=== PATIENT | female | born 1980 | race Caucasian/White ===

== ENCOUNTER 2019-02-26 16:38 | Emergency (ER) | payer BC, OTHER ==
[2019-02-26] MEDS ORDERED: NORMAL SALINE 1000 ML 1,000 ML IV ONE (16:50)
--- NOTE | 2019-02-26 16:52 | ER Document Report ---
ED Medical Screen (RME) - General Chief Complaint: Head Injury without LOC Stated Complaint: DIZZINESS,HEADACHE Time Seen by Provider: 02/26/19 16:41 Primary Care Provider: LAMBERT STUART MD [Primary Care Provider] - Follow up as needed Notes: Patient presents stating that she hit her head with a car door 6 days ago. Patient states she has had a headache since then that has changed in location. Patient states that there was no loss of consciousness no nausea or vomiting. Patient reports seeing her primary doctor on Wednesday after this occurred. Patient states that she went to the [facility] ER 2 days ago and received IV fluids headache medication and had a negative CT scan. Patient states today the headache is now up to the right occipital area she is nauseous and feels dizzy. Patient states that 2 days ago she had numbness to the left side of her face today she says she has numbness to the right side of her face. Patient very anxious and tearful in triage. I have greeted and performed a rapid initial assessment of this patient. A comprehensive ED assessment and evaluation of the patient, analysis of test results and completion of the medical decision making process will be conducted by additional ED providers. TRAVEL OUTSIDE OF THE [place] IN LAST 30 DAYS: No - Related Data Allergies/Adverse Reactions: No Known Allergies Allergy (Verified 02/26/19 16:45) Past Medical History - Social History Chew tobacco use (# tins/day): No Frequency of alcohol use: None Drug Abuse: None Renal/ Medical History: Reports: Hx Ovarian Cysts Psychiatric Medical History: Reports: Hx Anxiety, Hx Depression Past Surgical History: Reports: Hx Gynecologic Surgery - ovarian cyst - Immunizations Immunizations up to date: Yes Hx Diphtheria, Pertussis, Tetanus Vaccination: Yes Physical Exam - Vital signs Vitals: Temp Pulse Resp BP Pulse Ox 98.1 F 52 L 18 148/97 H 100 02/26/19 16:42 02/26/19 16:42 02/26/19 16:42 02/26/19 16:42 02/26/19 16:42 - Neurological Neuro grossly intact: Yes Sawyer Coma Scale Eye Opening: Spontaneous Khurram Coma Scale Verbal: Oriented Sawyer Coma Scale Motor: Obeys Commands Sawyer Coma Scale Total: 15 - Psychological Associated symptoms: Anxious, Tearful Course - Vital Signs Vital signs: Temp Pulse Resp BP Pulse Ox 98.1 F 52 L 18 148/97 H 100 10/13/19 16:42 02/26/19 16:42 02/26/19 16:42 02/26/19 16:42 02/26/19 16:42 Doctor's Discharge - Discharge Referrals: LAMBERT STUART MD [Primary Care Provider] - Follow up as needed
--- NOTE | 2019-02-26 17:07 | ER Document Report ---
ED General - General Chief Complaint: Head Injury without LOC Stated Complaint: DIZZINESS,HEADACHE Time Seen by Provider: 02/26/19 16:41 Primary Care Provider: LAMBERT STUART MD [NO LOCAL MD] - Follow up as needed TRAVEL OUTSIDE OF THE [place] IN LAST 30 DAYS: No - HPI Patient complains to provider of: headache Notes: 38 y/o presenting to ED for evaluation of bilateral throbbing headache pain is a bilateral throbbing pain encompassing the entire head no neck pain or fever she has had some nausea and some nonbilious vomiting she states her head trauma was approx 6 days ago she was seen by pcp who felt she had a concussion at the time and recommended rest, po hydration, and nsaids she subsequently presented to the ED at [facility] and had a negative head CT and was given IV tylenol, phenergan and benadryl as well as an IVF bolus. She presents today after going to work today (works here at [employer]) and felt very badly while on shift with nausea, worsening headache to a severe intensity, and varying episodes of facial tingling/numbness which she has had over the last week since the head injury. she describes intermittent difficulty with finding words but denies ever having any arm/leg weakness or speech changes. she has been driving and parenting normally per herself and spouse who is at bedside - Related Data Allergies/Adverse Reactions: No Known Allergies Allergy (Verified 02/26/19 16:45) Past Medical History - Social History Smoking Status: Never Smoker Chew tobacco use (# tins/day): No Frequency of alcohol use: None Drug Abuse: None Family History: Reviewed & Not Pertinent Patient has suicidal ideation: No Patient has homicidal ideation: No Renal/ Medical History: Reports: Hx Ovarian Cysts Psychiatric Medical History: Reports: Hx Anxiety, Hx Depression Past Surgical History: Reports: Hx Gynecologic Surgery - ovarian cyst - Immunizations Immunizations up to date: Yes Hx Diphtheria, Pertussis, Tetanus Vaccination: Yes Review of Systems - Review of Systems Constitutional: No symptoms reported EENT: No symptoms reported Cardiovascular: No symptoms reported Respiratory: No symptoms reported Gastrointestinal: Nausea, Vomiting. denies: Abdominal pain, Diarrhea, Blood in vomit Genitourinary: No symptoms reported Female Genitourinary: No symptoms reported Musculoskeletal: No symptoms reported Skin: No symptoms reported Hematologic/Lymphatic: No symptoms reported Neurological/Psychological: Headaches Physical Exam - Vital signs Vitals: Temp Pulse Resp BP Pulse Ox 98.1 F 52 L 18 148/97 H 100 02/26/19 16:42 02/26/19 16:42 02/26/19 16:42 02/26/19 16:42 02/26/19 16:42 Interpretation: Normal - General General appearance: Appears well, Alert In distress: None - HEENT Head: Normocephalic, Atraumatic Eyes: Normal Pupils: PERRL Sinus: Normal Nasal: Normal Mucous membranes: Normal Pharynx: Normal Neck: Normal. No: Anterior cervical chain, Posterior cervical chain, Brudzinski, Kernig's, Lymphadenopathy - Respiratory Respiratory status: No respiratory distress Chest status: Nontender Breath sounds: Normal Chest palpation: Normal - Cardiovascular Rhythm: Regular Heart sounds: Normal auscultation Murmur: No - Abdominal Inspection: Normal Distension: No distension Bowel sounds: Normal Tenderness: Nontender Organomegaly: No organomegaly - Back Back: Normal, Nontender - Extremities General upper extremity: Normal inspection, Nontender, Normal color, Normal ROM, Normal temperature General lower extremity: Normal inspection, Nontender, Normal color, Normal ROM, Normal temperature, Normal weight bearing. No: Honey's sign - Neurological Neuro grossly intact: Yes Cognition: Normal Orientation: AAOx4 Khurram Coma Scale Eye Opening: Spontaneous Khurram Coma Scale Verbal: Oriented Khurram Coma Scale Motor: Obeys Commands [place] Coma Scale Total: 15 Speech: Normal Cranial nerves: Normal. No: Facial palsy, Forehead sparing, Gaze palsy, Sensory deficit, Tongue deviation Cerebellar coordination: Normal Motor strength normal: LUE, RUE, LLE, RLE Additional motor exam normals: No: Pronator drift, Weakness Sensory: Normal - Psychological Associated symptoms: Normal affect, Normal mood - Skin Skin Temperature: Warm Skin Moisture: Dry Skin Color: Normal Course - Re-evaluation Re-evalutation: 02/26/19 17:27 patient with ongoing headache since head trauma approximately 6 days ago she has had negative head CT since injury but states pain has now worsened to a severe headache and now encompasses the entire head she is having nausea/vomiting as well her symptoms are consistent w/ post-concussive syndrome she is neurologically intact and has no neurologic deficits here despite report of intermittent paresthesia type symptoms patient has no evidence of meningismus and given onset with trauma, do not feel that LP is indicated doubt that repeat neuro-imaging is absolutely necessary however patient is very concerned for potential misdiagnosis and states headache is worsening will repeat head CT and provide IVF, toradol/reglan/benadryl 02/26/19 18:44 reports improvement in symptoms CT head negative recommend outpt neurology follow up for ongoing headaches - Vital Signs Vital signs: Temp Pulse Resp BP Pulse Ox 98.1 F 52 L 21 H 123/65 100 02/26/19 16:42 02/26/19 16:42 02/26/19 18:07 02/26/19 18:07 02/26/19 18:07 - Laboratory Result Diagrams: 02/26/19 17:05 02/26/19 17:05 Laboratory results interpreted by me: 02/26/19 02/26/19 17:05 17:05 WBC 13.5 H RBC 5.65 H MCV 79 L MCH 26.1 L RDW 15.0 H Glucose 111 H Calcium 10.8 H - Diagnostic Test Radiology reviewed: Image reviewed, Reports reviewed - EKG Interpretation by Me Additional EKG results interpreted by me: 02/26/19 17:35 NSR, rate of 50, no ST segment changes, normal T waves Discharge - Discharge Clinical Impression: Post-concussion headache, Elevated blood pressure reading Condition: Stable Disposition: HOME, SELF-CARE Instructions: Headache ([facility]) Additional Instructions: please return to the ED with worsening continue home medications as prescribed follow up with your primary doctor and consider outpatient follow up with a neurologist Forms: Elevated Blood Pressure Referrals: LAMBERT STUART MD [NO LOCAL MD] - Follow up as needed
[2019-02-26 17:16] LABS: ABSOLUTE BASOPHILS # (AUTO) 0.2 10^3/uL (0.0-0.2); ABSOLUTE EOSINOPHILS # (AUTO) 0.2 10^3/uL (0.0-0.6); ABSOLUTE LYMPHOCYTES (AUTO) 4.2 10^3/uL (0.5-4.7); ABSOLUTE MONOCYTES (AUTO) 0.7 10^3/uL (0.1-1.4); ABSOLUTE NEUT (AUTO) 8.2 10^3/uL (1.7-8.2); BASOPHILS % (AUTO) 1.4 % (0-2); EOSINOPHILS % (AUTO) 1.8 % (0-6); HEMATOCRIT 44.7 % (36.0-47.0); HEMOGLOBIN 14.7 g/dL (12.0-15.5); LYMPHOCYTES % (AUTO) 31.4 % (13-45); MEAN CORPUSCULAR HEMOGLOBIN 26.1 pg (27.0-33.4); MEAN CORPUSCULAR HGB CONC 32.9 g/dL (32.0-36.0); MEAN CORPUSCULAR VOLUME 79 fl (80-97); PLATELET COUNT 237 10^3/uL (150-450); RED BLOOD COUNT 5.65 10^6/uL (3.72-5.28); SEGMENTED NEUTROPHILS % (AUTO) 60.4 % (42-78); TOTAL CELLS COUNTED % (AUTO) 100 %; WHITE BLOOD COUNT 13.5 10^3/uL (4.0-10.5)
[2019-02-26] MEDS ORDERED: DIPHENHYDRAMINE HCL 50 MG/ML VIAL IV ONE (17:21)
[2019-02-26] MEDS ORDERED: METOCLOPRAMIDE HCL INJ/PF 10 MG/2 ML SDV IV ONE (17:21)
[2019-02-26] MEDS ORDERED: KETOROLAC TROMETHAMINE INJ/PF 30 MG/1 ML SDV IV ONE (17:21)
[2019-02-26 17:40] LABS: ANION GAP 15 (5-19); BLOOD UREA NITROGEN 12 mg/dL (7-20); CALCIUM 10.8 mg/dL (8.4-10.2); CARBON DIOXIDE 25 mmol/L (22-30); CHLORIDE 102 mmol/L (98-107); GLUCOSE 111 mg/dL (75-110); POTASSIUM 3.6 mmol/L (3.6-5.0)
--- NOTE | 2019-02-26 18:07 | EKG REPORT ---
SEVERITY:- NORMAL ECG - SINUS BRADYCARDIA 50 : Confirmed by: Andrew Khanna MD 26-Feb-2019 18:06:06
--- NOTE | 2019-02-26 18:37 | RADIOLOGY REPORT (SQ) ---
EXAM DESCRIPTION: CT HEAD WITHOUT COMPLETED DATE/TIME: 02/26/2019 6:20 pm REASON FOR STUDY: headache COMPARISON: None. TECHNIQUE: Axial images acquired through the brain without intravenous contrast. Images reviewed wi th bone, brain and subdural windows. Images stored on PACS. All CT scanners at this facility use dose modulation, iterative reconstruction, and/or weight based d osing when appropriate to reduce radiation dose to as low as reasonably achievable (ALARA). [facility]: Dose Right [facility]: CareDose [facility]: Dose Right [facility]: Teradose 4D [facility]: [employer] RADIATION DOSE: CT Rad equipment meets quality standard of care and radiation dose reduction techniq ues were employed. CTDIvol: 53.2 mGy. DLP: 911 mGy-cm. mGy. LIMITATIONS: None. FINDINGS: VENTRICLES: Normal size and contour. CEREBRUM: No masses. No hemorrhage. No midline shift. No evidence for acute infarction. Normal gra y/white matter differentiation. No areas of low density in the white matter. CEREBELLUM: No masses. No hemorrhage. No alteration of density. No evidence for acute infarction. EXTRAAXIAL SPACES: No fluid collections. No masses. ORBITS AND GLOBE: No intra- or extraconal masses. Normal contour of globe without masses. CALVARIUM: No fracture. PARANASAL SINUSES: No fluid or mucosal thickening. SOFT TISSUES: No mass or hematoma. OTHER: No other significant finding. IMPRESSION: NORMAL BRAIN CT WITHOUT CONTRAST. EVIDENCE OF ACUTE STROKE: NO. COMMENT: Quality ID # [id number]: Final reports with documentation of one or more dose reduction techniques (e.g., Automated exposure control, adjustment of the mA and/or kV according to patient size, use of iterative reconstruction technique) TECHNICAL DOCUMENTATION: JOB ID: [id number] [employer]- All Rights Reserved Reading location - IP/workstation name: [email or web address]
[2019-02-26 18:55] VITALS: BP 125/86
== END 2019-02-26 19:00 | disposition home or self-care (01) ==
LOC: ER 16:38
DX: G44.309 Post-traumatic headache, unspecified, not intractable (principal); R11.2 Nausea with vomiting, unspecified; R03.0 Elevated blood-pressure reading, without diagnosis of hypertension
CPT/HCPCS: 93005; 36415; 84703; 85025; 80048; 70450; 93010; J1200; J1885; J2765; J7030; 96361; 96374; 96375; 99284

== ENCOUNTER → 2020-05-21 | Outpatient (CLI) | payer BC, OTHER ==
[~2020-05-21] MED LIST: COVID-19 VACCINE (PFIZER)/PF 30 MCG/0.3 ML VIAL IM ONE; EPINEPHRINE INJ/PF 1 MG/1 ML AMPULE IM PRN
== END ==
LOC: EMPHEALTH 14:44
PROVIDERS: ATTEND Internal Medicine
DX: Z23 Encounter for immunization (principal)
CPT/HCPCS: 91300

== ENCOUNTER → 2020-06-11 | Outpatient (CLI) | payer BC, OTHER | LOC: EMPHEALTH 14:39 | PROVIDERS: ATTEND Internal Medicine | DX: Z23 Encounter for immunization (principal) | CPT/HCPCS: 91300 ==